=== PATIENT | male | born 1955 | race American Indian/Alaskan Native ===

== ENCOUNTER 2016-09-22 10:14 | Outpatient (CLI) | payer OTHER ==
[2016-09-22 11:11] LABS: Blood Urea Nitrogen 13 mg/dL (9-20)
--- NOTE | 2016-09-22 13:24 | Cat Scan Report ---
CT scan of abdomen and pelvis without and with IV contrast: History: Benign essential microscopic hematuria. Findings: Normal lung bases. No pleural pericardial effusion. Normal size liver. Calcification in the liver suggestive of calcified granuloma. The normal gallbladder pancreas and spleen. Small sliding hiatal hernia. Normal adrenals and kidney parenchyma. Distended normal urinary bladder. No free intraperitoneal fluid. No evidence of adenopathy. Prostate measures 3.5 x 4.2 cm. Focal area of low attenuation in the midportion of the prostate measures 0.9 cm. Fecal impaction in rectum. Large amount of stool in moderately distended colon. No evidence of appendicitis or diverticulitis. Impression: Calcified granuloma liver. Small sliding hiatal hernia. Gaseous colon with a moderate to large volume of stool in colon. Focal area of low attenuation within the prostate may represent a prostatic abscess or mass.
== END 2016-09-22 10:15 | disposition home or self-care (01) ==
LOC: CT 10:14
PROVIDERS: ATTEND Urology
DX: R31.1 Benign essential microscopic hematuria (principal); K44.9 Diaphragmatic hernia without obstruction or gangrene; K75.3 Granulomatous hepatitis, not elsewhere classified
CPT/HCPCS: 36415; 74178; 82565; 84520; Q9967